=== PATIENT | female | born 1980 | race Caucasian/White ===

== ENCOUNTER 2022-08-04 11:19 | Day surgery (SDC) | payer OTHER ==
[2022-07-31 15:24] VITALS: BMI 21.5
[2022-08-04 11:50] VITALS: RESP 20
[2022-08-04 14:50] VITALS: TEMP 97.1
[2022-08-04 15:01] VITALS: BP 106/52; PULSE 82
== END 2022-08-04 15:15 | disposition home or self-care (01) ==
LOC: FASU-ENDO 11:19
PROVIDERS: ATTEND Internal Medicine Gastroenterology
PROC: 0DBL8ZX Excision of Transverse Colon, Via Natural or Artificial Opening Endoscopic, Diagnostic (ICD-10-PCS; 2022-08-04)
PROC: 0DBL8ZX Excision of Transverse Colon, Via Natural or Artificial Opening Endoscopic, Diagnostic (ICD-10-PCS; principal; 2022-08-04 13:34)
DX: Z12.11 Encounter for screening for malignant neoplasm of colon (principal); D12.3 Benign neoplasm of transverse colon; K64.1 Second degree hemorrhoids; Z86.010 Personal history of colon polyps
CPT/HCPCS: 81025; 88305-TC